=== PATIENT | female | born 1985 | race Caucasian/White ===

== ENCOUNTER 2023-02-18 08:44 | Outpatient (CLI) | payer OTHER | END 2023-02-18 08:59 | disposition home or self-care (01) | LOC: RX STUDY 08:44 | DX: N70.11 Chronic salpingitis (principal) ==

== ENCOUNTER 2023-08-23 13:43 | Outpatient (CLI) | payer OTHER | END 2023-08-23 13:46 | disposition home or self-care (01) | LOC: PRENATAL 13:43 | PROVIDERS: ATTEND Obstetrics & Gynecology Maternal & Fetal Medicine | DX: O36.80X0 Pregnancy with inconclusive fetal viability, not applicable or unspecified (principal); Z36.82 Encounter for antenatal screening for nuchal translucency; Z36.9 Encounter for antenatal screening, unspecified; O09.519 Supervision of elderly primigravida, unspecified trimester; Z3A.13 13 weeks gestation of pregnancy ==

== ENCOUNTER → 2023-10-10 16:13 | Outpatient (CLI) | payer OTHER | END | disposition home or self-care (01) | LOC: PRENATAL 16:13 | PROVIDERS: ATTEND Obstetrics & Gynecology Maternal & Fetal Medicine | DX: O35.3XX0 Maternal care for (suspected) damage to fetus from viral disease in mother, not applicable or unspecified (principal); O44.00 Complete placenta previa NOS or without hemorrhage, unspecified trimester; O09.519 Supervision of elderly primigravida, unspecified trimester; Z3A.20 20 weeks gestation of pregnancy ==

== ENCOUNTER 2024-02-15 10:15 | Inpatient (IN) | payer OTHER ==
[~2024-02-15] VITALS: Ht 165.1 cm; Wt 3.6 kg
[2024-02-15 12:15] LABS: URINE APPEARANCE Clear; URINE BILIRRUBIN Negative (NEGATIVE); URINE BLOOD Negative; URINE COLOR Yellow; URINE GLUCOSE Negative (NEGATIVE); URINE LEUKOCYTE Negative; URINE NITRATE Negative; URINE PROTEIN Negative (NEGATIVE); URINE UROBILINOGEN 0.2 E.U./dl
[2024-02-15 12:19] LABS: URINE BACTERIA 4782.5 uL (0.0-1933); URINE EPITHELIAL CELLS 31.6 uL (0.0-38.8); URINE RBC 6.1 uL (0.0-20.8); URINE WBC 64.3 uL (0.0-23.2)
[2024-02-15 12:19] LABS: HEMATOCRIT 34.7 % (36.0-45.00); HEMOGLOBIN 12.3 g/dL (12.0-15.00); MEAN CELL VOLUME 93.4 fL (80.00-100.00); MEAN CORPUSCULAR HGB CONC 35.3 g/dl (32.0-36.0); PLATELET COUNT 188 K/uL (150-450); RED BLOOD COUNT 3.72 M/uL (4.00-6.00); RED CELL DISTRIBUTION WIDTH 14.2 % (11.5-14.5)
[2024-02-15 12:44] LABS: ALBUMIN 2.7 gm/dL (3.4-5.0); BILIRUBIN TOTAL 0.31 mg/dL (0.3-1.2); CALCIUM 9.1 mg/dL (8.5-10.1); CREATININE SERUM 0.46 mg/dL (0.55-1.02); GFR 150.45; GLOBULINA 3.3 G/DL (2.4-3.5); POTASSIUM 4.26 mEq/L (3.5-5.1)
[2024-02-15 12:53] LABS: INR < 0.93; PARTIAL THROMBOPLASTIN TIME 26.9 SECONDS (22.0-34.0); PROTHROMBIN TIME 9.4 SECONDS (9.0-11.5)
[2024-02-20] MEDS ORDERED: PRENATAL + DHA1 EAC1 PO (08:43)
[2024-02-20] MEDS ORDERED: ERYTHROMYCIN BASE 1 GM TUBE OP ONE (12:45)
[2024-02-20] MEDS ORDERED: OXYTOCIN 10 UNITS/ML VIAL IV ONE (12:45)
[2024-02-20] MEDS ORDERED: CEFAZOLIN SODIUM 1,000 MG VIAL IV ONE (12:45)
[2024-02-20] MEDS ORDERED: ERYTHROMYCIN BASE 1 GM TUBE OP NR (13:30)
[2024-02-20] MEDS ORDERED: RINGERS SOLUTION,LACTATED 1,000 ML IV SCH (13:30)
[2024-02-20] MEDS ORDERED: OXYTOCIN 1,000 ML IV SCH (13:30)
[2024-02-20] MEDS ORDERED: CHLORHEXIDINE GLUCONATE 120 ML BOTTLE TOP NR (13:30)
[2024-02-20] MEDS ORDERED: CETIRIZINE HCL10 MG (14:32)
[2024-02-20] MEDS ORDERED: MORPHINE SULFATE 4 MG/ML CARTRIDGE IV SCH (17:00)
[2024-02-20 18:12] LABS: HEMATOCRIT 36.5 % (36.0-45.00); HEMOGLOBIN 12.7 g/dL (12.0-15.00); MEAN CELL VOLUME 92.8 fL (80.00-100.00); MEAN CORPUSCULAR HEMOGLOBIN 32.3 pg (27.00-32.0); MEAN CORPUSCULAR HGB CONC 34.8 g/dl (32.0-36.0); PLATELET COUNT 196 K/uL (150-450); RED BLOOD COUNT 3.94 M/uL (4.00-6.00); RED CELL DISTRIBUTION WIDTH 13.7 % (11.5-14.5)
[2024-02-20] MEDS ORDERED: OxyCODONE HCL/APAP UD (PERCOCET) PO PRN (22:00)
[2024-02-21] MEDS ORDERED: OxyCODONE HCL/APAP UD (PERCOCET) PO PRN (09:00)
[2024-02-21] MEDS ORDERED: DOCUSATE SODIUM 100MG CAP PO SCH (10:23)
[2024-02-22] MEDS ORDERED: SIMETHICONE 125 MG CAPSULE PO SCH (13:00)
== END 2024-02-22 12:42 | disposition home or self-care (01) | DRG 788 ==
LOC: OB/GYN 02-20 07:00 → O/R 02-20 08:35 → OB/GYN 02-20 10:15
PROVIDERS: ADMIT Obstetrics & Gynecology; ATTEND Obstetrics & Gynecology
PROC: 4A1HXCZ Monitoring of Products of Conception, Cardiac Rate, External Approach (ICD-10-PCS; 2024-02-20)
PROC: 10D00Z1 Extraction of Products of Conception, Low, Open Approach (ICD-10-PCS; principal; 2024-02-20 07:00)
DX: O82 Encounter for cesarean delivery without indication (principal); Z3A.39 39 weeks gestation of pregnancy; Z37.0 Single live birth; Z20.822 Contact with and (suspected) exposure to COVID-19